=== PATIENT | male | born 1955 | race Caucasian/White ===

== ENCOUNTER 2017-10-17 16:48 | Inpatient (IN) | payer OTHER, MEDICARE ==
[~2017-10-17] VITALS: Ht 172.7 cm; Wt 62.2 kg
[2017-10-17] VITALS (7 sets, daily range): BP systolic 136–170; BP diastolic 66–90; PULSE 61–93; RESP 16–18; TEMP 98.4; O2SAT 97–99
[~2017-10-17 16:48] MED LIST: CLON1 PO; LORA10TA PO; PRIL20CA PO; SIMV10TA PO; SOMA350T PO; TAB-TAB PO; TRAZ100 PO; VITATAB25 PO
[2017-10-17] MEDS ORDERED: GADODIAMIDE PF 287 MG/ML 5 ML VIAL (for RAD MRI) IVCONTRAST ONE (16:49)
[2017-10-17] MEDS ORDERED: LORazepam 2 MG/ML VIAL ONE (17:00)
[2017-10-17] MEDS ORDERED: SODIUM CHLOR 0.9% 1000 ML INJ 1,000 ML IV ONE (17:14)
--- NOTE | 2017-10-17 17:31 | RADRPT ---
EXAM DATE/TIME: 10/17/2017 17:18 [facility] COMPARISON: No previous studies available for comparison. INDICATIONS : Stroke alert. Left side facial droop. RADIATION DOSE: 54.57 CTDIvol (mGy) ; Tabletop CT Head; Patient motion This report was called by Dr. Mendiola to Dr. Meek at 5: 26 PM MEDICAL HISTORY : Multple sclerosis. Seizures. SURGICAL HISTORY : None. ENCOUNTER: Initial ACUITY: 1 day PAIN SCALE: 0/10 LOCATION: cranial TECHNIQUE: Multiple contiguous axial images were obtained of the head. Using automated exposure control and adj ustment of the mA and/or kV according to patient size, radiation dose was kept as low as reasonably a chievable to obtain optimal diagnostic quality images. DICOM format image data is available electro nically for review and comparison. FINDINGS: CEREBRUM: The ventricles are normal for age. No evidence of midline shift, mass lesion, hemorrhage or acute in farction. No extra-axial fluid collections are seen. There is chronic-appearing low attenuation in t he periventricular white matter. POSTERIOR FOSSA: The cerebellum and brainstem are intact. The 4th ventricle is midline. The cerebellopontine angle i s unremarkable. EXTRACRANIAL: The visualized portion of the orbits is intact. SKULL: The calvaria is intact. No evidence of skull fracture. CONCLUSION: No bleed or other acute intracranial abnormality demonstrated. Aaron Mendiola MD on October 17, 2017 at 17:26 Board Certified Radiologist. This report was verified electronically.
[2017-10-17] MEDS ORDERED: IOHEXOL 350 MG/ML 10 ML VIAL (for RAD DIAG) IVCONTRAST ONE (17:34)
[2017-10-17 17:40] LABS: AUTOMATED NEUTROPHIL # 11.1 TH/MM3 (1.8-7.7); BASOPHIL % 0.3 % (0.0-2.0); EOSINOPHIL % 0.2 % (0.0-4.0); HEMATOCRIT 45.8 % (39.0-51.0); HEMO FLAGS DIFF FINAL; LYMPH % 7.3 % (9.0-44.0); LYMPHOCYTE # 0.9 TH/MM3 (1.0-4.8); MEAN CELL VOLUME 92.1 FL (80.0-100.0); MEAN CORPUSCULAR HEMOGLOBIN 31.2 PG (27.0-34.0); MEAN CORPUSCULAR HGB CONC 33.9 % (32.0-36.0); MONO % 4.2 % (0.0-8.0); PLATELET COUNT 287 TH/MM3 (150-450); RED BLOOD COUNT 4.97 MIL/MM3 (4.50-5.90); RED CELL DISTRIBUTION WIDTH 14.2 % (11.6-17.2); WHITE BLOOD COUNT 12.6 TH/MM3 (4.0-11.0)
[2017-10-17] MEDS ORDERED: DEXAMETHASONE SOD PHOS 20 MG/5 ML VIAL IV PUSH ONE (17:45)
[2017-10-17] MEDS ORDERED: FOSPHENYTOIN SODIUM 500 MG PE/10 ML VIAL IV ONE (17:45)
--- NOTE | 2017-10-17 17:45 | RADRPT ---
EXAM DATE/TIME: 10/17/2017 17:25 [facility] COMPARISON: No previous studies available for comparison. INDICATIONS : Neck pain post seizure. RADIATION DOSE: 25.37 CTDIvol (mGy) MEDICAL HISTORY : Multple sclerosis. SURGICAL HISTORY : None. ENCOUNTER: Initial ACUITY: 1 day PAIN SCALE: 6/10 LOCATION: neck TECHNIQUE: Volumetric scanning of the cervical spine was performed. Multiplanar reconstructions in the sagittal, coronal and oblique axial planes were performed. Using automated exposure control and adjustment o f the mA and/or kV according to patient size, radiation dose was kept as low as reasonably achievable to obtain optimal diagnostic quality images. DICOM format image data is available electronically f or review and comparison. FINDINGS: There is no fracture or subluxation of the cervical spine. Paravertebral soft tissues are within norm al limits. Severe disc space narrowing with large posterior disc osteophyte complexes and uncovertebral/facet os teoarthritis seen at C3/C4 and C5/C6. There is moderate spinal stenosis and bilateral foraminal steno sis at both of these levels. Severe right-sided predominant C1/C2 lateral osteoarthritis noted and th ere is moderate anterior and left lateral osteoarthritis. CONCLUSION: 1. No fracture or subluxation of the cervical spine. 2. Considerable degenerative changes are seen throughout, especially C3/C4, C5/C6 and right side of C 1/C2. Aaron Mendiola MD on October 17, 2017 at 17:39 Board Certified Radiologist. This report was verified electronically.
--- NOTE | 2017-10-17 17:46 | RADRPT ---
EXAM DATE/TIME: 10/17/2017 17:30 [facility] COMPARISON: No previous studies available for comparison. INDICATIONS : Stroke alert. Left side facial droop. IV CONTRAST: 75 cc Omnipaque 350 (iohexol) IV ; Cumulative dose for multiple exams. RADIATION DOSE: 28.42 CTDIvol (mGy) ; Combined studies MEDICAL HISTORY : Multple sclerosis. Seizures. SURGICAL HISTORY : None. ENCOUNTER: Initial ACUITY: 1 day PAIN SCALE: 0/10 LOCATION: cranial TECHNIQUE: Volumetric scanning was performed using a multi-row detector CT scanner. The data was post processed with a variety of visualization algorithms including full volume maximum intensity projection, multi -planar sliding thin slab reformation, curved planar reformation, and surface rendering techniques. Using automated exposure control and adjustment of the mA and/or kV according to patient size, radiat ion dose was kept as low as reasonably achievable to obtain optimal diagnostic quality images. DICO M format image data is available electronically for review and comparison. FINDINGS: Anterior circulation: Distal intracranial internal carotid arteries are patent with flow extending to the middle and anteri or cerebral arteries. There is no evidence for aneurysm, vessel truncation or stenosis, and no eviden ce for vascular malformation. Posterior circulation: Symmetric distal vertebral arteries with flow extending to basilar artery. There is no evidence for aneurysm, vessel truncation or stenosis, and no evidence for vascular malformation. CONCLUSION: 1. Unremarkable head CTA examination. Specifically, no evidence for large vessel occlusion. Kostas Garcia MD on October 17, 2017 at 17:41 Board Certified Radiologist. This report was verified electronically.
[2017-10-17 17:57] LABS: APTT (PATIENT) 30.9 SEC (24.3-30.1); INTERNATIONAL NORMALIZED RATIO 1.1 RATIO; PROTHROMBIN TIME - PATIENT 11.1 SEC (9.8-11.6)
[2017-10-17 17:59] LABS: I-STAT POTASSIUM 3.4 MMOL/L (3.5-4.9); I-STAT SODIUM 138 MMOL/L (138-146)
[2017-10-17 18:09] LABS: BLOOD, URINE SMALL (NEG); GLUCOSE,URINE NEG (NEG); HYALINE CAST, URINE 1 /lpf (RARE); KETONE, URINE 10 mg/dL (NEG); MUCUS URINE FEW /lpf (OCC); NITRITE,URINE NEG (NEG); PH, URINE 5.5 (5.0-8.5); SQUAMOUS EPITHELIAL CELL URINE <1 /hpf (0-5); URINE COLOR YELLOW (YELLW/STRAW)
--- NOTE | 2017-10-17 18:10 | RADRPT ---
EXAM DATE/TIME: 10/17/2017 17:30 [facility] COMPARISON: No previous studies available for comparison. INDICATIONS : Stroke alert. Left side facial droop. IV CONTRAST: 75 cc Omnipaque 350 (iohexol) IV ; Cumulative dose for multiple exams. RADIATION DOSE: 28.42 CTDIvol (mGy) ; Combined studies MEDICAL HISTORY : Multple sclerosis. Seizures. SURGICAL HISTORY : None. ENCOUNTER: Initial ACUITY: 1 day PAIN SCALE: 0/10 LOCATION: neck Elevated flow velocities and ICA/CCA ratios have been found to correlate with increased degrees of vessel stenosis, calculated as percentage of diameter relative to a normal segment of distal ICA/CCA. TECHNIQUE: Volumetric scanning was performed using a multirow detector CT scanner. The data was post processed with a variety of visualization algorithms including full-volume maximum intensity projection, multip lanar sliding thin-slab reformation, curved-planar reformation, and surface-rendering techniques. Us ing automated exposure control and adjustment of the mA and/or kV according to patient size, radiatio n dose was kept as low as reasonably achievable to obtain optimal diagnostic quality images. DICOM f ormat image data is available electronically for review and comparison. FINDINGS: AORTIC ARCH: Bovine type two vessel arch anatomy. Proximal marked vessels are patent. RIGHT CAROTID: The common carotid artery is intact. The carotid bulb has a normal configuration without ulceration o r narrowing. Mild calcified plaque at the origin of the internal carotid artery which results in less than 20% stenosis. Internal carotid artery is otherwise patent to the skull base. The external carot id artery is intact. LEFT CAROTID: The common carotid artery is intact. Mild mixed plaque in the distal carotid bulb extending to the or igin of the internal carotid artery with resultant less than 20% stenosis. Internal carotid artery is otherwise patent to the skull base. The external carotid artery is intact. VERTEBRALS: The vertebral arteries have a symmetric diameter. No stenotic lesions are seen. CONCLUSION: 1. Mild carotid plaque with resultant less than 20% stenosis of the internal carotid artery origins b ilaterally. 2. Patent bilateral vertebral arteries. Kostas Garcia MD on October 17, 2017 at 18:04 Board Certified Radiologist. This report was verified electronically.
[2017-10-17] MEDS ORDERED: MULTTAB67 PO (18:22)
[2017-10-17] MEDS ORDERED: TRAZ100T10 PO (18:22)
[2017-10-17] MEDS ORDERED: CLON1 PO (18:22)
[2017-10-17] MEDS ORDERED: SOMA350T PO (18:22)
[2017-10-17] MEDS ORDERED: OMEP20TA93 PO (18:22)
[2017-10-17] MEDS ORDERED: SIMV10TA PO (18:22)
[2017-10-17 18:24] LABS: CREATINE KINASE 201 U/L (39-308)
--- NOTE | 2017-10-17 18:25 | PD ---
HPI Chief Complaint: Stroke Alert Time Seen by Provider: 17:13 Travel History International Travel<30 days: No Contact w/Intl Traveler<30days: No Traveled to known affect area: No History of Present Illness HPI Patient is a 62-year-old male with a history of MS presents emergency Department with [facility]AC for evaluation after 2 seizures. Patient apparently has never had a seizure prior to today. According to EMS the patient was in the room next to his girlfriend when she heard him collapse [facility] find him having generalized tonic-clonic seizures, she called 911 when 911 arrived they found him very confused a prepared him for transport and then he had another seizure in the back of the ambulance. EMS describes a generalized tonic-clonic seizure lasting for a minute or 2. She no medicines prior to arrival. Shortly after arrival to the emergency department the patient began having left upper and left lower extremity weakness as well as favoring gaze to the right side. He was then roomed emergently. His last seen normal approximately 1550 but EMS states that he did not have this paralysis while in the ambulance. Patient is able to communicate at this time, he states that he is not on any blood thinners, does not have a history of a stroke or heart attack. PFSH Past Medical History Cancer: No Cardiovascular Problems: No Diabetes: No Endocrine: No Gastrointestinal Disorders: Yes (ACID REFLUX, BLOOD IN STOOL, "SPOT ON PANCREAS ") Genitourinary: Yes (BPH) Hepatitis: Yes (HEP C) Hiatal Hernia: No Hypertension: No Immune Disorder: No Medical other: Yes (CHRONIC RHINITIS) Neurologic: Yes (MULTIPLE SCLEROSIS) Psychiatric: No Reproductive: No Respiratory: No Thyroid Disease: No Tetanus Vaccination: Unknown Past Surgical History AICD: No Body Medical Devices: 2 PINS REMOVED FROM L HAND Joint Replacement: No Oral Surgery: Yes (TONSILS REMOVED) Pacemaker: No Other Surgery: Yes Social History Alcohol Use: No Tobacco Use: No Substance Use: No Allergies-Medications (Allergen,Severity, Reaction): Coded Allergies: cephalexin (Unverified Adverse Reaction, Intermediate, Itching, 06/29/17) Reported Meds & Prescriptions Reported Meds & Active Scripts Active Reported Klonopin (Clonazepam) 1 Mg Tab 1 Mg PO BID Trazodone (Trazodone HCl) 100 Mg Tablet 100 Mg PO HS Omeprazole 20 Mg Tab 20 Mg PO DAILY Simvastatin 10 Mg Tab 10 Mg PO DAILY Multiple Vitamin 1 Tab 1 Tab PO DAILY Soma (Carisoprodol) 350 Mg Tab 350 Mg PO QID PRN Review of Systems ROS Limitations: Altered Mental Status Except as stated in HPI: all other systems reviewed are Neg Physical Exam Exam Limitations: Altered Mental Status Narrative GENERAL: Well-developed well-nourished, no obvious distress. He is in full spinal package. SKIN: Focused skin assessment warm/dry. HEAD: Normocephalic. No acevedo signs no raccoons eyes. EYES: Pupils equal and round. No scleral icterus. No injection or drainage. ENT: No nasal bleeding or discharge. Mucous membranes pink and moist. NECK: Trachea midline. No JVD. CARDIOVASCULAR: Regular rate and rhythm. No murmur appreciated. RESPIRATORY: No accessory muscle use. Clear to auscultation. Breath sounds equal bilaterally. GASTROINTESTINAL: Abdomen soft, non-tender, nondistended. Hepatic and splenic margins not palpable. MUSCULOSKELETAL: No obvious deformities. No clubbing. No cyanosis. No edema. No midline CT or L-spine tenderness. Extremities appear atraumatic. NEUROLOGICAL: Patient is a 5 technology consultant strength in the left upper extremity and one out of 5 strength in the left lower extremity. Right extremities have 5 out of 5 strength. The patient does have some facial asymmetry and some weakness on the left side of his face when he tries to smile. His gaze is fairly fixed towards the right side but he is able to force himself to follow extraocular movements. PSYCHIATRIC: Appropriate mood and affect; insight and judgment normal. Data Data Last Documented VS Vital Signs Date Time Temp Pulse Resp B/P (MAP) Pulse Ox O2 Delivery O2 Flow Rate FiO2 10/17/17 18:15 74 18 136/79 (98) 97 Nasal Cannula 2.00 10/17/17 17:17 98.4 Orders Orders Lorazepam Inj (Ativan Inj) (10/17/17 17:00) Diet Npo (10/17/17 Dinner) Activity Bed Rest (10/17/17 ) Electrocardiogram (10/17/17 ) I-Stat Creatinine (10/17/17 17:14) I-Stat Profile (10/17/17 17:14) Prothrombin Time / Inr (Pt) (10/17/17 17:14) Act Partial Throm Time (Ptt) (10/17/17 17:14) Complete Blood Count With Diff (10/17/17 17:14) Fibrinogen (10/17/17 17:14) Creatine Kinase (Cpk) (10/17/17 17:14) Troponin I (10/17/17 17:14) Ua Includes Microscopic (10/17/17 17:14) Drug Screen, Random Urine (10/17/17 17:14) Type And Screen (10/17/17 17:14) Ct Brain W/O Iv Contrast(Rout) (10/17/17 ) Cta Brain W Iv Contrast W 3d (10/17/17 17:14) Cta Neck W Iv Contrast W 3d (10/17/17 17:14) Consult Neurology (10/17/17 ) Blood Glucose (10/17/17 17:14) Ecg Monitoring (10/17/17 17:14) Neuro Checks Q2HX12,Q4H (10/17/17 17:14) Nursing Bedside Swallow Assess .ONCE (10/17/17 17:14) Iv Access Insert/Monitor (10/17/17 17:14) NPO (10/17/17 17:14) Oximetry (10/17/17 17:14) Oxygen Administration (10/17/17 17:14) Sodium Chlor 0.9% 1000 Ml Inj (Ns 1000 M (10/17/17 17:14) Resp Oxygen Angel C Titrat 1-4 L (10/17/17 17:14) Cath For Specimen (10/17/17 17:14) Ct Cerv Spine W/O Contrast (10/17/17 ) (Hub Use Only)Inp Phy Cons/Ref (10/17/17 ) Iohexol 350 Inj (Omnipaque 350 Inj) (10/17/17 17:34) Dexamethasone Inj (Decadron Inj) (10/17/17 17:45) Fosphenytoin Inj (Cerebyx Inj) (10/17/17 17:45) Mri Brain W&W/O Contrast (10/17/17 ) Eeg Study (10/17/17 ) Phenytoin (Dilantin) (10/18/17 06:00) Phenytoin (Dilantin) (10/19/17 06:00) Phenytoin (Dilantin) (10/20/17 06:00) Phenytoin (Dilantin) (10/21/17 06:00) Phenytoin (Dilantin) (10/22/17 06:00) Phenytoin (Dilantin) (10/23/17 06:00) Scd Bilateral/Knee High ANITHA.QSHIFT (10/17/17 18:22) ^ Fall Precautions (10/17/17 18:22) Reliability Technologist / Telemetry ANITHA.Q8H (10/17/17 18:22) Fosphenytoin Inj (Cerebyx Inj) (10/17/17 21:00) Westergren Sedimentation Rate (10/17/17 18:31) Hemoglobin (Hgb) A1c (10/17/17 18:31) Heparin Inj (Heparin Inj) (10/17/17 22:00) Gadodiamide Pf Inj (Omniscan Pf Inj) (10/17/17 16:49) Admit Order (Ed Use Only) (10/17/17 ) Vitamin B12 (10/17/17 17:10) Magnesium (Mg) (10/17/17 17:10) Thyroid Stimulating Hormone (10/17/17 17:10) Labs Laboratory Tests Test 10/17/17 17:10 10/17/17 17:40 White Blood Count 12.6 TH/MM3 Red Blood Count 4.97 MIL/MM3 Hemoglobin 15.5 GM/DL Bedside Hemoglobin 16.7 G/DL Hematocrit 45.8 % Bedside Hematocrit 49.0 % Mean Corpuscular Volume 92.1 FL Mean Corpuscular Hemoglobin 31.2 PG Mean Corpuscular Hemoglobin Concent 33.9 % Red Cell Distribution Width 14.2 % Platelet Count 287 TH/MM3 Mean Platelet Volume 8.3 FL Neutrophils (%) (Auto) 88.0 % Lymphocytes (%) (Auto) 7.3 % Monocytes (%) (Auto) 4.2 % Eosinophils (%) (Auto) 0.2 % Basophils (%) (Auto) 0.3 % Neutrophils # (Auto) 11.1 TH/MM3 Lymphocytes # (Auto) 0.9 TH/MM3 Monocytes # (Auto) 0.5 TH/MM3 Eosinophils # (Auto) 0.0 TH/MM3 Basophils # (Auto) 0.0 TH/MM3 CBC Comment DIFF FINAL Differential Comment Prothrombin Time 11.1 SEC Prothromb Time International Ratio 1.1 RATIO Activated Partial Thromboplast Time 30.9 SEC Fibrinogen 429 mg/dL Bedside Sodium 138 MMOL/L Bedside Potassium 3.4 MMOL/L Bedside Chloride 101 MMOL/L Bedside Blood Urea Nitrogen 3 MG/DL Bedside Creatinine 1.0 MG/DL Bedside Glucose 136 MG/DL Magnesium Level 2.8 MG/DL Total Creatine Kinase 201 U/L Troponin I LESS THAN 0.02 NG/ML Triglycerides Level 64 MG/DL Cholesterol Level 129 MG/DL LDL Cholesterol 48 MG/DL HDL Cholesterol 67.8 MG/DL Cholesterol/HDL Ratio 1.90 RATIO Urine Color YELLOW Urine Turbidity CLEAR Urine pH 5.5 Urine Specific [place] 1.020 Urine Protein 30 mg/dL Urine Glucose (UA) NEG mg/dL Urine Ketones 10 mg/dL Urine Occult Blood SMALL Urine Nitrite NEG Urine Bilirubin NEG Urine Urobilinogen LESS THAN 2.0 MG/DL Urine Leukocyte Esterase NEG Urine RBC 1 /hpf Urine WBC 3 /hpf Urine Squamous Epithelial Cells <1 /hpf Urine Hyaline Casts 1 /lpf Urine Mucus FEW /lpf Urine Opiates Screen NEG Urine Barbiturates Screen NEG Urine Amphetamines Screen NEG Urine Benzodiazepines Screen NEG Urine Cocaine Screen POS Urine Cannabinoids Screen NEG MDM Medical Screen Exam Complete: Yes Emergency Medical Condition: Yes Differential Diagnosis Acute stroke, Carter's paralysis, electrolyte abnormality, hemorrhage, and said seizure, status epilepticus. Narrative Course Patient roomed in emergency department, no seizure activity was displayed in the ER, nursing overrode Ativan but the patient never received in the emergency department. He was activated as a stroke alert on arrival with his last time seen normal approximately 1550 but certainly appears like his onset was within the past 10 minutes of being in the emergency department. Certainly Carter's paralysis is high on the differential, the patient was discussed with Dr. Eid and the patient is a candidate for TPA. His NIH stroke scale was performed quickly bedside on his arrival and is approximately 8. However by the time he was evaluated by internet marketing coordinator on CAT scan table his NIH and fell onto 1. Given the seizures as well as the resolving nature of his condition no TPA will be given. Given his history of MS the patient was given 10 mg of Decadron IV as well as loaded on Cerebyx 1000mgPE IV. Patient's CT and CTA were negative. I did discuss this CT with radiology and there may be some posterior aspect edema on this patient. Patient then went for MRI and while in MRI the patient was discussed with Dr. Castillo for admission. Hemodynamically stable his neurologic condition appears to be a stabilized as well. Think that he needs to go to the ICU overnight for close neurologic monitoring. Critical Care Narrative Aggregate critical care time was 45 minutes. Time to perform other separately billable procedures was not included in the critical care time. My time did not include minutes spent treating any other patients simultaneously or on activities that did not directly contribute to the patient's treatment. The services I provided to this patient were to treat and/or prevent clinically significant deterioration that could result in: , disability, organ failure I provided critical care services requiring my management, as noted below: Chart data review, documentation time, medication orders and management, vital sign assessments/reviewing monitor data, ordering and reviewing lab tests, ordering and interpreting/reviewing x-rays and diagnostic studies, care of the patient and discussion of the patient with the admitting physicians. Stroke Alert NIHSS NIH Stroke Scale Result: 1 NIHSS Time Completed: 17:32 Thrombolytic Contraindications Contraindications Comment: Resolving Diagnosis Diagnosis: Primary Impression: Status epilepticus Additional Impressions: Carter's paralysis TIA (transient ischemic attack) Cocaine abuse Admitting Physician Requests: Admit Condition: Jose Chamberlain MD Oct 17, 2017 18:25
--- NOTE | 2017-10-17 19:31 | HHI.HP ---
[facility] Service Critical Care Medicine Primary Care Physician [facility] Admission Diagnosis Status Epilepticus, Focal weakness, MS flare? Diagnosis: Travel History International Travel<30 Days: No Contact w/Intl Traveler <30 Da: No Traveled to Known Affected Are: No History of Present Illness 62-year-old right hand dominant male with past history of multiple sclerosis which she states was diagnosed in 2001 and has been followed by a neurologist at [facility] (patient does not recall the name). He also has a history of hyperlipidemia, anxiety, reflux. He presents to [facility] emergency department after tonic-clonic seizure. Patient states he was in bed when it occurred. His girlfriend summoned [facility]. He had not returned completely to his baseline mental status when [facility] arrived and then he had another tonic-clonic seizure. He was not administered any drugs by [facility]. His glucose was 148. While he was awaiting triage he then developed right gaze preference and left hemiparesis and stroke alert was called. CT C-spine demonstrated degenerative changes but no acute fracture or subluxation. CTA brain was also negative and CTA neck demonstrated mild plaque bilaterally without significant stenosis. Patient denies prior h/o seizure. His hemiparesis has resolved. Denies headache, neck pain, parasthesias, fever. He states his chronic MS symptoms consists of L leg pain for which he takes soma. He currently complains of thirst and hunger. He received fosphenytoin 1000 mg/ PE IV and Decadron 10 mg IV in the ED. Neurology consultation has been obtained. MRI pending. UDS is positive for cocaine. Denies h/o of EtOH dependence. Review of Systems Constitutional: DENIES: Fever Eyes: DENIES: Photosensitivity Ears, nose, mouth, throat: DENIES: Hearing loss, Vertigo, Throat pain, Hoarseness, Ear Pain Cardiovascular: DENIES: Chest pain, Syncope Gastrointestinal: DENIES: Abdominal pain Immunologic/allergic: DENIES: Urticaria Neurologic: COMPLAINS OF: Localized weakness, Seizures, DENIES: Headache, Paresthesias, Speech Problems, Tremor, Poor Balance Psychiatric: COMPLAINS OF: Anxiety Past Family Social History Allergies: Coded Allergies: cephalexin (Unverified Adverse Reaction, Intermediate, Itching, 06/29/17) Past Medical History GERD Hyperlipidemia Chronic rhinitis Anxiety Insomnia His records indicate a history of hep C but he denies this. Records also indicated BPH but he also denied that. Past Surgical History Tonsillectomy ORIF fifth digit of left hand Reported Medications Soma 350 g by mouth 4 times a day Simvastatin 10 mill grams by mouth daily Klonopin 1 mill grams by mouth twice a day Trazodone 100 mg by mouth daily at bedtime (he states he takes it for sleep) Omeprazole 20 mill grams by mouth daily Multivitamin one by mouth daily Family History Patient denies family history of stroke Social History Patient states he is a nonsmoker. He drinks alcohol occasionally. Denies alcohol dependence. Smokes marijuana occasionally. He denied use of cocaine however UDS is positive He is retired. He used to work as a library technician Physical Exam Vital Signs Vital Signs Date Time Temp Pulse Resp B/P (MAP) Pulse Ox O2 Delivery O2 Flow Rate FiO2 10/17/17 18:15 74 18 136/79 (98) 97 Nasal Cannula 2.00 10/17/17 18:09 93 18 154/66 (95) 97 Nasal Cannula 2.00 10/17/17 17:48 75 18 97 Nasal Cannula 2.00 10/17/17 17:41 97 Nasal Cannula 2.00 10/17/17 17:29 99 Nasal Cannula 2.00 10/17/17 17:17 98.4 84 18 170/90 (116) 99 10/17/17 17:17 99 Nasal Cannula 10/17/17 17:17 87 16 170/90 (116) 99 Nasal Cannula 2.00 Physical Exam GENERAL: Well-nourished, well-developed thin male who is laying in ED stretcher, alert, on his phone communicating by text nearly continuously during H and P. SKIN: Warm and dry. Abrasion right shoulder, no swelling or deformity. HEAD: Atraumatic. Normocephalic. EYES: Pupils equal and round, 4 mm and reactive to 2 mm bilaterally. EOMI. ENT: No nasal bleeding or discharge. Mucous membranes pink and moist. NECK: Trachea midline. No JVD. CARDIOVASCULAR: Regular rate and rhythm, sinus rhythm on the monitor. . No murmurs rubs or gallops. RESPIRATORY: No accessory muscle use. Clear to auscultation. Breath sounds equal bilaterally. GASTROINTESTINAL: Abdomen soft, scaphoid, non-tender, nondistended. Hepatic and splenic margins not palpable. Bowel sounds present. MUSCULOSKELETAL: Extremities without clubbing, cyanosis, or edema. No obvious deformities. NEUROLOGICAL: Awake and alert. Oriented x4. No obvious cranial nerve deficits. No facial droop. Normal tongue protrusion. Extraocular movements intact. Normal speech. Strength 5 out 5 in all extremity. Sensation intact. No response to Babinski. Laboratory Laboratory Tests Test 10/17/17 17:10 10/17/17 17:40 White Blood Count 12.6 Red Blood Count 4.97 Hemoglobin 15.5 Bedside Hemoglobin 16.7 Hematocrit 45.8 Bedside Hematocrit 49.0 Mean Corpuscular Volume 92.1 Mean Corpuscular Hemoglobin 31.2 Mean Corpuscular Hemoglobin Concent 33.9 Red Cell Distribution Width 14.2 Platelet Count 287 Mean Platelet Volume 8.3 Neutrophils (%) (Auto) 88.0 Lymphocytes (%) (Auto) 7.3 Monocytes (%) (Auto) 4.2 Eosinophils (%) (Auto) 0.2 Basophils (%) (Auto) 0.3 Neutrophils # (Auto) 11.1 Lymphocytes # (Auto) 0.9 Monocytes # (Auto) 0.5 Eosinophils # (Auto) 0.0 Basophils # (Auto) 0.0 CBC Comment DIFF FINAL Differential Comment Prothrombin Time 11.1 Prothromb Time International Ratio 1.1 Activated Partial Thromboplast Time 30.9 Fibrinogen 429 Bedside Sodium 138 Bedside Potassium 3.4 Bedside Chloride 101 Bedside Blood Urea Nitrogen 3 Bedside Creatinine 1.0 Bedside Glucose 136 Total Creatine Kinase 201 Troponin I LESS THAN 0.02 Urine Color YELLOW Urine Turbidity CLEAR Urine pH 5.5 Urine Specific [place] 1.020 Urine Protein 30 Urine Glucose (UA) NEG Urine Ketones 10 Urine Occult Blood SMALL Urine Nitrite NEG Urine Bilirubin NEG Urine Urobilinogen LESS THAN 2.0 Urine Leukocyte Esterase NEG Urine RBC 1 Urine WBC 3 Urine Squamous Epithelial Cells <1 Urine Hyaline Casts 1 Urine Mucus FEW Urine Opiates Screen NEG Urine Barbiturates Screen NEG Urine Amphetamines Screen NEG Urine Benzodiazepines Screen NEG Urine Cocaine Screen POS Urine Cannabinoids Screen NEG Result Diagram: 10/17/17 1710 Caprini VTE Risk Assessment Caprini VTE Risk Assessment: Mod/High Risk (score >= 2) Caprini Risk Assessment Model Point Value = 1 Point Value = 2 Point Value = 3 Point Value = 5 Age 41-60 Minor surgery BMI > 25 kg/m2 Swollen legs Varicose veins or History of unexplained or recurrent spontaneous Oral contraceptives or hormone replacement Sepsis (< 1 month) Serious lung disease, including pneumonia (< 1 month) Abnormal pulmonary function Acute myocardial infarction Congestive heart failure (< 1 month) History of inflammatory bowel disease Medical patient at bed rest Age 61-74 Arthroscopic surgery Major open surgery (> 45 min) Laparoscopic surgery (> 45 min) Malignancy Confined to bed (> 72 hours) Immobilizing plaster cast Central venous access Age >= 75 History of VTE Family history of VTE Factor V Leiden Prothrombin [id number] Lupus anticoagulant Anticardiolipin antibodies Elevated serum homocysteine Heparin-induced thrombocytopenia Other congenital or acquired thrombophilia Stroke (< 1 month) Elective arthroplasty Hip, pelvis, or leg fracture Acute spinal cord injury (< 1 month) Prophylaxis Regimen Total Risk Factor Score Risk Level Prophylaxis Regimen 0-1 Low Early ambulation 2 Moderate Order ONE of the following: *Sequential Compression Device (SCD) *Heparin 5000 units SQ BID 3-4 Higher Order ONE of the following medications: *Heparin 5000 units SQ TID *Enoxaparin/Lovenox 40 mg SQ daily (WT < 150 kg, CrCl > 30 mL/min) *Enoxaparin/Lovenox 30 mg SQ daily (WT < 150 kg, CrCl > 10-29 mL/min) *Enoxaparin/Lovenox 30 mg SQ BID (WT < 150 kg, CrCl > 30 mL/min) AND/OR *Sequential Compression Device (SCD) 5 or more Highest Order ONE of the following medications: *Heparin 5000 units SQ TID (Preferred with Epidurals) *Enoxaparin/Lovenox 40 mg SQ daily (WT < 150 kg, CrCl > 30 mL/min) *Enoxaparin/Lovenox 30 mg SQ daily (WT < 150 kg, CrCl > 10-29 mL/min) *Enoxaparin/Lovenox 30 mg SQ BID (WT < 150 kg, CrCl > 30 mL/min) AND *Sequential Compression Device (SCD) Assessment and Plan Problem List: (1) Cocaine abuse ICD Code: F14.10 - Cocaine abuse, uncomplicated Status: Acute (2) Seizure ICD Code: R56.9 - Unspecified convulsions Status: Acute (3) Multiple sclerosis ICD Code: G35 - Multiple sclerosis Status: Chronic (4) GERD (gastroesophageal reflux disease) ICD Code: K21.9 - Gastro-esophageal reflux disease without esophagitis Status: Chronic (5) HLD (hyperlipidemia) ICD Code: E78.5 - Hyperlipidemia, unspecified Status: Chronic (6) BPH (benign prostatic hyperplasia) ICD Code: N40.0 - Benign prostatic hyperplasia without lower urinary tract symptoms Status: Chronic Assessment and Plan NEURO: Acute seizure Cocaine abuse Multiple sclerosis Anxiety Insomnia Seizure precautions Received fosphenytoin in the emergency department. Will continue 200 mg /PE IV q12 hours. Dilantin and albumin level in am. Neurology consult. F/u EEG and MRI RESP: Wean nasal cannula as tolerated CV: Hyperlipidemia Continue pravastatin 20 mg by mouth daily GI: GERD Protonix 40 mg by mouth daily. On omeprazole at home. Bedside swallow eval and then if passes, heart healthy diet FEN/RENAL: Hypokalemia Potassium 20 mEq by mouth now. ID: Leukocytosis, may be reactive. Monitor for signs and symptoms of infection. UA is negative. HEME: No acute hematologic issues. B 12 normal. ENDO: TSH within normal range, low end. PROPH: Heparin 5000 subcutaneous every 8 hours for DVT prophylaxis. Protonix as per above ACCESS: Peripheral IV providing adequate access at this time. Monitor in ICU overnight for seizures. Consult hospitalist to assume care in am. LEvel 3 H and P Pura Castillo MD Oct 17, 2017 19:31
--- NOTE | 2017-10-17 19:43 | RADRPT ---
EXAM DATE/TIME: 10/17/2017 18:56 [place] COMPARISON: CT BRAIN W/O CONTRAST, October 17, 2017, 17:18. INDICATIONS : Seizures. CONTRAST: 14 cc Omniscan (gadodiamide) IV MEDICAL HISTORY : Multiple sclerosis. SURGICAL HISTORY : Tonsillectomy. ENCOUNTER: Initial ACUITY: 1 day PAIN SCORE: 0/10 LOCATION: cranial TECHNIQUE: Multiplanar, multisequence MRI of the brain was performed both prior to and following the administrat ion of paramagnetic contrast. FINDINGS: CEREBRUM: The ventricles are normal for age. No evidence of midline shift, mass lesion, hemorrhage or acute in farction. No extraaxial fluid collections are seen. The pituitary gland and suprasellar cistern are normal in configuration. WHITE MATTER: Severe but chronic and symmetric flair signal abnormality seen in the white matter of both 3 bral hem ispheres. There is parietal lobe and periventricular/pericallosal predominance. There is no associate d restricted diffusion. There is no associated abnormal enhancement. POSTERIOR FOSSA: The cerebellum and brainstem are intact. The 4th ventricle is midline. The cerebellopontine angle is unremarkable. The cerebellar tonsils are normal in position. DIFFUSION IMAGING: No focal areas of restricted diffusion are seen. No evidence of acute infarction. EXTRACRANIAL: The visualized portions of the orbits and paranasal sinuses are unremarkable. POST-CONTRAST: No abnormal areas of parenchymal or dural enhancement. No evidence of blood-brain barrier breakdown. CONCLUSION: 1. No acute intracranial abnormality. 2. Severe chronic white matter changes. Aaron Mendiola MD on October 17, 2017 at 19:39 Board Certified Radiologist. This report was verified electronically.
[2017-10-17] MEDS ORDERED: BISACODYL 10 MG SUPP RECTAL PRN (20:00)
[2017-10-17] MEDS ORDERED: SODIUM CHLORIDE 0.9% FLUSH 10 ML FLUSH IV FLUSH PRN (20:00)
[2017-10-17] MEDS ORDERED: MAGNESIUM HYDROXIDE SUSP 30 ML CUP PO PRN (20:00)
[2017-10-17] MEDS ORDERED: SENNOSIDES 8.6 MG TAB PO PRN (20:00)
[2017-10-17] MEDS ORDERED: MISCELLANEOUS NURSING INFORMATION XX SCH (20:00)
[2017-10-17] MEDS ORDERED: ACETAMINOPHEN 325 MG TAB PO PRN (20:00)
[2017-10-17] MEDS ORDERED: HEPARIN SODIUM - SQ 10,000 UNITS/ML VIAL SQ SCH (20:00)
[2017-10-17] MEDS ORDERED: POTASSIUM CHLORIDE 20 MEQ CONTROLLED RELEASE TAB PO ONE (20:00)
[2017-10-17] MEDS ORDERED: ONDANSETRON HCL 4 MG/2 ML VIAL IV PUSH PRN (20:00)
[2017-10-17] MEDS ORDERED: RESP: ALBUTEROL 2.5 MG/3 ML NEB (PRN) INH (20:00)
[2017-10-17] MEDS ORDERED: CARISOPRODOL 350 MG TAB PO PRN (20:00)
[2017-10-17] MEDS ORDERED: CHLORHEXIDINE GLUCONATE 2 % 1 PACK (2 CLOTHS) TOP PRN (20:00)
[2017-10-17] MEDS ORDERED: LACTULOSE SYRUP 20 GM/30 ML CUP PO PRN (20:00)
[2017-10-17] MEDS: SODIUM CHLOR 0.9% 1000 ML INJ 1,000 ML IV SCH (20:06)
[2017-10-17 20:27] LABS: MAGNESIUM 2.8 MG/DL (1.5-2.5)
[2017-10-17 20:28] LABS: HDL CHOLESTEROL 67.8 MG/DL (40.0-60.0)
[2017-10-17] MEDS: FOSPHENYTOIN INJ 200 MGPE in SODIUM CHLORIDE 0.9% INJ 50 ML IV SCH (20:54)
[2017-10-17] MEDS ORDERED: traZODone HCL 100 MG TAB PO SCH (21:00)
[2017-10-17] MEDS: SODIUM CHLORIDE 0.9% FLUSH 10 ML FLUSH IV FLUSH SCH (21:00)
[2017-10-17] MEDS ORDERED: FOSPHENYTOIN SODIUM 100 MG PE/2 ML VIAL IV SCH (21:00)
[2017-10-17] MEDS ORDERED: NON-FORMULARY DRUG (Trazodone 100 MG) PO SCH (21:00)
[2017-10-17] MEDS: DOCUSATE SODIUM 50 MG/SENNA 8.6 MG TAB PO SCH (22:17)
[2017-10-17] MEDS: HEPARIN SODIUM - SQ 10,000 UNITS/ML VIAL SQ SCH (22:17)
[2017-10-17] MEDS: clonazePAM 1 MG TAB PO SCH (22:17)
[2017-10-18] VITALS (8 sets, daily range): BP systolic 112–124; BP diastolic 61–80; PULSE 50–68; RESP 16–25; TEMP 97.7–98.4; O2SAT 96–100
[2017-10-18] MEDS ORDERED: CHLORHEXIDINE GLUCONATE 2 % 1 PACK (2 CLOTHS) TOP SCH (04:00)
[2017-10-18] MEDS: HEPARIN SODIUM - SQ 10,000 UNITS/ML VIAL SQ SCH (04:30)
[2017-10-18 05:51] LABS: AUTOMATED NEUTROPHIL # 6.3 TH/MM3 (1.8-7.7); BASOPHIL % 0.3 % (0.0-2.0); EOSINOPHIL % 0.1 % (0.0-4.0); HEMATOCRIT 45.6 % (39.0-51.0); LYMPH % 11.7 % (9.0-44.0); LYMPHOCYTE # 0.9 TH/MM3 (1.0-4.8); MEAN CELL VOLUME 92.5 FL (80.0-100.0); MEAN CORPUSCULAR HEMOGLOBIN 30.7 PG (27.0-34.0); MEAN CORPUSCULAR HGB CONC 33.2 % (32.0-36.0); MONO % 2.6 % (0.0-8.0); NEUT % 85.3 % (16.0-70.0); PLATELET COUNT 252 TH/MM3 (150-450); RED BLOOD COUNT 4.93 MIL/MM3 (4.50-5.90); RED CELL DISTRIBUTION WIDTH 14.3 % (11.6-17.2); WHITE BLOOD COUNT 7.4 TH/MM3 (4.0-11.0)
[2017-10-18 05:54] LABS: HEMO FLAGS AUTO DIFF
[2017-10-18 06:26] LABS: BICARBONATE 20.2 MEQ/L (21.0-32.0); POTASSIUM 4.3 MEQ/L (3.5-5.1)
[2017-10-18 06:49] LABS: ACANTHOCYTES OCC (NORMAL); PLATELET ESTIMATE SMEAR NORMAL (NORMAL); PLATELET MORPHOLOGY NORMAL (NORMAL); SCAN/DIFF AUTO DIFF CONFIRMED
[2017-10-18] MEDS: SODIUM CHLOR 0.9% 1000 ML INJ 1,000 ML IV SCH (07:45)
[2017-10-18] MEDS ORDERED: SODIUM CHLOR 0.9% 1000 ML INJ 1,000 ML IV SCH (08:01)
[2017-10-18] MEDS: FOSPHENYTOIN INJ 200 MGPE in SODIUM CHLORIDE 0.9% INJ 50 ML IV SCH (08:40)
[2017-10-18] MEDS: clonazePAM 1 MG TAB PO SCH (08:41)
[2017-10-18] MEDS: SODIUM CHLORIDE 0.9% FLUSH 10 ML FLUSH IV FLUSH SCH (08:41)
[2017-10-18] MEDS: DOCUSATE SODIUM 50 MG/SENNA 8.6 MG TAB PO SCH (08:41)
--- NOTE | 2017-10-18 08:45 | MB ---
cc: KYM SALDANA DATE OF CONSULTATION: 10/18/2017 HISTORY OF PRESENT ILLNESS A 62-year-old right-handed man with a history of hypercholesterolemia, MS since 2001 with right lower extremity pain and some general fatigue, some right lower extremity weakness at times, some sciatica on the right side, who has never had a seizure. Initially he said he fell out of bed, felt lightheaded, had 2 grand mal seizures, according to the ER notes and was given Dilantin. Also given a gram of Solu-Medrol. He does have a history depression and anxiety, usually he is seen over at the [facility] in [place] and he is on Copaxone everyday. He is evidently seen and thought to be weak in the left side in the ER and he is awaiting triage, felt to have right gaze preference, left hemiparesis, stroke alert was called. CTA was negative. REVIEW OF SYSTEMS He denied any significant headache, fever, recent medicine change. He is not on Wellbutrin or tramadol. He denies any hypertension, diabetes, NM, CABG, cardiac arrhythmia, stent, angioplasty, atrial fibrillation, Coumadin, renal, hepatic or pulmonary disease, thyroid disease, lupus, ulcer, cancer, seizure, stroke. SOCIAL HISTORY He is not a smoker, occasionally has a drink but not everyday. Denied any drug use but his urine drug screen was positive for cocaine. Lives with his girlfriend on [address] in an apartment. FAMILY HISTORY Positive for cancer, pancreatic in his father. Negative for seizure or stroke. MEDICATIONS AT HOME 1. Klonopin one milligram b.i.d. 2. Trazodone. 3. Omeprazole. 4. Simvastatin. 5. Multivitamin. 6. Soma. PAST MEDICAL HISTORY As above, also: 1. Some insomnia. 2. GERD. PHYSICAL EXAMINATION VITAL SIGNS: On exam he is afebrile, 112/65, 22, 50-60, initially 170/90. NECK: There are no carotid bruits. HEART: Regular rhythm. I do not detect a murmur. NEURO: Pupils are equal. Visual horne are full. Extraocular movements intact without nystagmus. Face symmetric with normal sensation. Tongue was midline. There is no drift. He had normal strength in upper and lower extremities bilateral including the right lower extremity. DTRs are slightly hyperreflexic throughout upper and lower extremities bilaterally, about a 3+. There is no ankle clonus. Tone was normal throughout. Toes downgoing bilaterally. Pinprick, vibratory sense are intact throughout. He is not ataxic on [id number]. Speech is fluent, he is not aphasic. He is oriented. LABORATORY DATA CBC is normal. Sed rate was 3. Urine drug screen positive for cocaine. Dilantin this morning is 16. UA was negative. Basic metabolic profile showed a sodium of 135 this morning, 138 yesterday. Glucose 136, CPK and troponin normal. LDL cholesterol 48. B12, thyroid normal. Coags normal. IMAGING STUDIES CTA of the [id number]-Ihusxt which was read as normal. CTA of the neck was negative. Brain MRI showed some white matter changes. He had a CT scan of his cervical spine. No fracture was noted. He had a brain MRI in 2004, consistent with old burned-out MS, according to the reading. CT of the cervical spine showed moderate spinal stenosis at C3-4 and C5-6, a lot of arthritis at C1-2. Review of the films, I reviewed the CT of the cervical spine and there is no major spinal stenosis. MRI of the brain shows a lot of old MS plaques, nothing acute. No black holes, nothing in the brainstem, bilateral periventricular dots and fingers are noted. He has been in sinus rhythm. IMPRESSION Apparent seizure, cocaine use, and I have asked him not to use cocaine. He should not drive, although he is not currently driving, also should not take a bath alone, swim alone and I have put in orders for that. In addition, I have recommended check an echo and Holter. If the echo is negative and the Holter is on, he could be discharged later today on 81 mg of aspirin and hold off on any cocaine. I would not treat him with an antiepileptic drug at this time, if his EEG is negative, which will be done today also. He can get up out of bed and unusual with a left hemiparesis spell, it is unclear how much of that could have been a Carter's phenomenon or another small seizure versus a TIA, which would be unusual with the onset of the seizures. MD JOSELO Adame/ANNETTE /7:51 AM /8:07 AM
[2017-10-18] MEDS ORDERED: PRAVASTATIN SOD 20 MG TAB PO SCH (09:00)
[2017-10-18] MEDS ORDERED: PANTOPRAZOLE SOD 40 MG DELAYED RELEASE TAB PO SCH (09:00)
[2017-10-18] MEDS ORDERED: PANTOPRAZOLE SOD 20 MG DELAYED RELEASE TAB PO SCH (09:00)
[2017-10-18] MEDS ORDERED: NON-FORMULARY DRUG (Simvastatin 10 MG) PO SCH (09:00)
[2017-10-18] MEDS ORDERED: NON-FORMULARY DRUG (Multiple Vitamin 1 TAB) PO SCH (09:00)
[2017-10-18] MEDS ORDERED: ASPIRIN EC 81 MG TABEC PO SCH (09:00)
[2017-10-18] MEDS ORDERED: NON-FORMULARY DRUG (Omeprazole 20 MG) PO SCH (09:00)
[2017-10-18] MEDS ORDERED: MULTIVITAMIN TAB PO SCH (09:00)
[2017-10-18 09:16] LABS: HEMOGLOBIN A1a 1.2 %; HEMOGLOBIN A1b 1.7 %; HEMOGLOBIN Ao 85.3 %; HEMOGLOBIN LA1C 2.4 %; HEMOGLOBIN P3 3.7 %
[2017-10-18 13:07] LABS: TOTAL PROTEIN SPE 7.2 GM/DL (6.0-7.6)
--- NOTE | 2017-10-18 14:43 | HHI.PR ---
Subjective Remarks Patient seen and examined. He states he will sign himself out within the next hour. I advised him he still has EEG and echocardiogram pending per neurology recommendations that will determine his final medical management. He does not want to stay and states he is living. Objective Vitals Vital Signs Date Time Temp Pulse Resp B/P (MAP) Pulse Ox O2 Delivery O2 Flow Rate FiO2 10/18/17 10:00 63 10/18/17 10:00 63 16 119/65 (83) 97 10/18/17 09:00 68 20 117/61 (79) 99 10/18/17 08:26 99 10/18/17 08:00 98.3 62 24 123/70 (87) 100 10/18/17 08:00 62 10/18/17 04:00 98.1 50 22 112/65 (81) 96 10/18/17 01:00 96 21 10/18/17 00:00 98.4 61 25 115/80 (92) 97 10/17/17 23:00 61 10/17/17 20:54 10/17/17 19:49 78 18 141/67 (91) 99 Room Air 10/17/17 18:15 74 18 136/79 (98) 97 Nasal Cannula 2.00 10/17/17 18:09 93 18 154/66 (95) 97 Nasal Cannula 2.00 10/17/17 17:48 75 18 97 Nasal Cannula 2.00 10/17/17 17:41 97 Nasal Cannula 2.00 10/17/17 17:29 99 Nasal Cannula 2.00 10/17/17 17:17 98.4 84 18 170/90 (116) 99 10/17/17 17:17 99 Nasal Cannula 10/17/17 17:17 87 16 170/90 (116) 99 Nasal Cannula 2.00 I/O 10/17/17 10/17/17 10/17/17 10/18/17 10/18/17 10/18/17 07:00 15:00 23:00 07:00 15:00 23:00 Intake Total 180 ml 1072 ml 174 ml Output Total 750 ml 400 ml 600 ml Balance -570 ml 672 ml -426 ml Intake Oral 240 ml IV Total 180 ml 832 ml 174 ml Output Urine Total 750 ml 400 ml 600 ml # Voids 1 # Bowel Movements 0 Result Diagram: 10/18/17 0325 10/18/17 0325 Imaging Last Impressions Neck CTA 10/17/17 1714 Signed Impressions: Service Date/Time: Tuesday, October 17, 2017 17:30 - CONCLUSION: 1. Mild carotid plaque with resultant less than 20%% stenosis of the internal carotid artery origins bilaterally. 2. Patent bilateral vertebral arteries. Kostas Garcia MD Head CTA 10/17/17 1714 Signed Impressions: Service Date/Time: Tuesday, October 17, 2017 17:30 - CONCLUSION: 1. Unremarkable head CTA examination. Specifically, no evidence for large vessel occlusion. Kostas Garcia MD Head CT 10/17/17 0000 Signed Impressions: Service Date/Time: Tuesday, October 17, 2017 17:18 - CONCLUSION: No bleed or other acute intracranial abnormality demonstrated. Aaron Mendiola MD Cervical Spine CT 10/17/17 0000 Signed Impressions: Service Date/Time: Tuesday, October 17, 2017 17:25 - CONCLUSION: 1. No fracture or subluxation of the cervical spine. 2. Considerable degenerative changes are seen throughout, especially C3/C4, C5/C6 and right side of C1/C2. Aaron Mendiola MD Brain MRI 10/17/17 0000 Signed Impressions: Service Date/Time: Tuesday, October 17, 2017 18:56 - CONCLUSION: 1. No acute intracranial abnormality. 2. Severe chronic white matter changes. Aaron Menidola MD Objective Remarks GENERAL: This is a well-nourished, well-developed patient, in no apparent distress. CARDIOVASCULAR: Normal rate and regular rhythm without murmurs, gallops, or rubs. RESPIRATORY: Good respiratory efforts. Breath sounds equal and clear to auscultation bilaterally. GASTROINTESTINAL: Abdomen soft, non-tender, non-distended. Normal active bowel sounds MUSCULOSKELETAL: Extremities without cyanosis, or edema. NEURO: Alert & Oriented x4 to person, place, time, situation. Moves all ext x4 PSYCH: Appropriate mood and affect. A/P Assessment and Plan 62-year-old male presented to the hospital after reported seizures at home. The patient apparently was using cocaine. He was admitted and treated with IV antiepileptic. Brain imaging did not reveal any acute changes. The patient was seen by neurology recommended EEG and echocardiogram. Unfortunately the patient refused to stay in the hospital for further workup and left the hospital AGAINST MEDICAL ADVICE despite extensive counseling. He was counseled regarding complete cessation of illicit drug use. Damari Montgomery MD Oct 18, 2017 14:43
--- NOTE | 2017-10-18 19:40 | EKG ---
Date Performed: 10/17/2017 Time Performed: 17:44:02 PTAGE: 62 years EKG: Sinus rhythm Since previous tracing, no significant change noted NORMAL ECG PREVIOUS TRACING : 06/26/2014 10.24.30 DOCTOR: Elizabeth Meyer Interpretating Date/Time 10/18/2017 19:39:08
--- NOTE | 2017-10-19 07:16 | MG ---
cc: ROGER KIMBALL MD Lab No: 17-____ Date: 10/18/2017 Age: 62 Sex: M Race: ___ DATE OF [address] Reynoso MEDICAL HISTORY 1. Found collapsed with generalized tonic clonic seizure, confused. Left upper and lower extremity weakness with gazing to the right. 2. History of anxiety. 3. Hep-C 4. Substance abuse 5. MS 6. BPH 7. GERD 8. UDS positive for cocaine. MEDICATIONS 1. Protonix 2. Aspirin 3. Pravachol 4. Heparin 5. Klonopin 6. Desyrel 7. Soma DESCRIPTION The background activity is 10-11 Hz alpha superimposed by excess beta activity. There is excessive muscle artifact during the recording. Hyperventilation did not make a change in the EEG. Photic station did not elicit a driving response. There were no electrographic seizures or epileptiform discharges noted during the recording. INTERPRETATION This is an awake and drowsy EEG. There were no epileptiform discharges or electrographic seizures. Clinical correlation is recommended. MD TALIA Sanches/FLORINDA /8:36 PM /7:07 AM MTDUrmila
[2017-10-19 22:44] LABS: ALBUMIN SPE 4.11 GM/DL (3.50-5.00); ALPHA 1 GLOBULIN 0.22 GM/DL (0.11-0.29); ALPHA 2 GLOBULIN 0.87 GM/DL (0.22-1.00)
[2017-10-19 22:45] LABS: BETA GLOBULINS (SPE) 0.85 GM/DL (0.53-1.03)
[2017-10-20 15:45] LABS: ANA SCREEN POS (NEG)
== END 2017-10-18 14:10 | disposition left against medical advice (07) | DRG 101 ==
LOC: NEPD 16:48 → NEDA 19:25 → HIMN 20:45 → N06A 10-18 10:54
PROVIDERS: ADMIT Emergency Medicine; ATTEND Emergency Medicine
DX: R56.9 Unspecified convulsions (principal); G83.84 Todd's paralysis (postepileptic); G35 Multiple sclerosis; F14.10 Cocaine abuse, uncomplicated; S40.211A Abrasion of right shoulder, initial encounter; D72.829 Elevated white blood cell count, unspecified; F32.9 Major depressive disorder, single episode, unspecified; K21.9 Gastro-esophageal reflux disease without esophagitis; N40.0 Benign prostatic hyperplasia without lower urinary tract symptoms; E78.5 Hyperlipidemia, unspecified; G47.00 Insomnia, unspecified; E87.6 Hypokalemia; M54.31 Sciatica, right side; J31.0 Chronic rhinitis; F12.90 Cannabis use, unspecified, uncomplicated; F41.9 Anxiety disorder, unspecified; Z86.19 Personal history of other infectious and parasitic diseases; Z88.1 Allergy status to other antibiotic agents
CPT/HCPCS: 70450; 70496; 70498; 70553; 72125; 80048; 80061; 80185; 80307; 81001; 82040; 82435; 82550; 82565; 82607; 82947; 83036; 83735; 84132; 84165; 84295; 84425; 84443; 84484; 84520; 85025; 85384; 85610; 85652; 85730; 86038; 86039; 86592; 86850; 86900; 86901; 87641; 93005; 95819; 96374; 96375; A9579; J1100; J1644; J2060; J7030; P9612; Q2009; Q9967